=== PATIENT | female | born 1995 | race Caucasian/White ===

== ENCOUNTER 2017-01-17 21:52 | Emergency (ER) | payer BC, OTHER ==
[~2017-01-17] VITALS: Ht 165.1 cm; Wt 56.4 kg
[2017-01-17 21:54] VITALS: Ht 165.1 cm; Wt 56.4 kg
[2017-01-17] MEDS ORDERED: KETOROLAC TROMETHAMINE 30 MG/ML VIAL IV STA (22:04)
[2017-01-17] MEDS ORDERED: SODIUM CHLORIDE 0.9% 1000ML 500 ML IV STA (22:04)
[2017-01-17] MEDS ORDERED: BCPILLS PO (22:15)
[2017-01-17] MEDS ORDERED: MULT1TAB22 PO (22:15)
--- NOTE | 2017-01-17 22:16 | EMERGENCY ROOM VISIT NOTE ---
History Report prepared by Melquiades: Delbert Guido Under the Supervision of: Dr. Gerard Sanford M.D. First contact with patient: 21:59 Chief Complaint: FEVER Stated Complaint: FEVER, BLADDER INFECTION,BACK PAIN History of Present Illness The patient is a 21 year old female who presents to the Emergency Room with complaints of a constant fever beginning a couple days ago. The patient states that she went to [facility] last night and was told she had an untreated UTI that lead to a bladder infection. She reports that she was given an antibiotic, and she started it last evening. The patient notes that she has taken three doses of Cipro so far. She states that she is taking Q-pap to help with her fever. The patient reports that she was told to go to the ED if her fever broke 101 degrees or could not be controlled by medication. She notes that she took Q- pap this morning, and it controlled the fever. The patient states that she took it again, and the fever reached 100.9 degrees. She reports that she is no longer experiencing dysuria because of the Cipro. The patient notes that she is also having lower back discomfort. She states that she has a history of UTIs, but she has never been on Cipro before. The patient reports that she thought she had a yeast infection, so she took Monistat for a week. She denies vaginal discharge, chance of being , vomiting, sorethroat, cough, trouble eating, and congestion. The patient also denies a history of . Source of History: patient Onset: couple days ago Position: head Quality: other (fever) Timing: constant Associated Symptoms: + back pain, No sorethroat, No cough, No vomiting Note: Associated symptoms: pain-less fluid behind her ear drum Denies: vaginal discharge, chance of being , trouble eating, and congestion. Review of Systems See HPI for pertinent positives & negatives. A total of 10 systems reviewed and were otherwise negative. Past Medical & Surgical Medical Problems: (1) UTI (urinary tract infection) Family History Patient reports no known family medical history. Social History Smoking Status: Never Smoker Housing Status: lives with roommate Occupation Status: [employer] student Current/Historical Medications Scheduled Control Pills ( Control Pills), 1 TAB PO DAILY Multiple Vitamins W/ Minerals (One Daily For Women), 1 TAB PO DAILY Allergies Coded Allergies: No Known Allergies (Unverified , 01/17/17) Physical Exam Vital Signs Date Time Temp Pulse Resp B/P (MAP) Pulse Ox O2 Delivery O2 Flow Rate FiO2 01/17/17 23:33 36.9 01/17/17 22:44 78 20 99/60 98 Room Air 01/17/17 21:54 37.7 93 16 107/57 97 Room Air Physical Exam GENERAL: Patient is in no acute distress. HEENT: No acute trauma, normocephalic atraumatic, mucous membranes moist, no nasal congestion, no scleral icterus. NECK: No stridor, no adenopathy, no meningismus, trachea is midline. LUNGS: Clear to auscultation bilaterally, no wheeze, no rhonchi, breath sounds equal. HEART: Without murmurs gallops or rubs, regular rate and rhythm. ABDOMEN: Soft, bowel sounds positive, no hernias, no peritonitis. Mildly tender over the bladder and epigastrium. BACK: No flank discomfort with percussions. EXTREMITIES: No cyanosis or edema, full range of motion of all the joints without pain or difficulty, no signs for acute trauma. NEUROLOGIC: Oriented x 3, no acute motor or sensory deficits, no focal weakness. SKIN: No rash, no jaundice, no diaphoresis. Medical Decision & Procedures Laboratory Results 01/17/17 22:30 01/17/17 22:30 Test 01/17/17 22:30 Red Blood Count 3.63 M/uL (4.2-5.4) Mean Corpuscular Volume 92.0 fL (80-100) Mean Corpuscular Hemoglobin 32.5 pg (25-34) Mean Corpuscular Hemoglobin Concent 35.3 g/dl (32-36) RDW Standard Deviation 44.5 fL (36.4-46.3) RDW Coefficient of Variation 13.1 % (11.5-14.5) Mean Platelet Volume 10.2 fL (7.4-10.4) Urine Color YELLOW Urine Appearance CLEAR (CLEAR) Urine pH 7.0 (4.5-7.5) Urine Specific [place] 1.005 (1.000-1.030) Urine Protein NEG (NEG) Urine Glucose (UA) NEG (NEG) Urine Ketones NEG (NEG) Urine Occult Blood NEG (NEG) Urine Nitrite NEG (NEG) Urine Bilirubin NEG (NEG) Urine Urobilinogen NEG (NEG) Urine Leukocyte Esterase TRACE (NEG) Urine WBC (Auto) /hpf (0-5) Urine RBC (Auto) /hpf (0-4) Urine Hyaline Casts (Auto) /lpf (0-5) Urine Epithelial Cells (Auto) /lpf (0-5) Urine Bacteria (Auto) (NEG) Urine RBC 0-4 /hpf (0-4) Urine WBC 1-5 /hpf (0-5) Urine Epithelial Cells >30 /lpf (0-5) Urine Bacteria 1+ (NEG) Anion Gap 9.0 mmol/L (3-11) Est Creatinine Clear Calc Drug Dose 87.6 ml/min Estimated GFR () 104.6 Estimated GFR (Non- 90.3 BUN/Creatinine Ratio 9.0 (10-20) Calcium Level 9.0 mg/dl (8.5-10.1) Human Chorionic Gonadotropin, Qual NEG (NEG) Laboratory results reviewed by me. Medications Administered Medications (Trade) Dose Ordered Sig/Nazanin Route Start Time Stop Time Status Last Admin Dose Admin Sodium Chloride 500 ml @ 999 mls/hr Q31M STAT IV 01/17/17 22:04 01/17/17 22:34 DC 01/17/17 22:33 999 MLS/HR Ketorolac Tromethamine (Toradol Inj) 30 mg NOW STAT IV 01/17/17 22:04 01/17/17 22:06 DC 01/17/17 22:33 30 MG Ceftriaxone Sodium (Rocephin Inj) 1 gm NOW STAT IV 01/17/17 23:09 01/17/17 23:11 DC 01/17/17 23:41 1 GM ED Course 2158: The patient was evaluated in room B10. A complete history and physical exam was performed. 2203: Ordered Toradol Inj 30mg IV, Sodium Chloride 500 ml @ 999 mls/hr IV 2308: Ordered Rocephin Inj 1gm IV 2333: Reevaluated the patient. Her fever has returned to baseline. Discussed results and discharge instructions: she verbalized understanding and agreement. The patient is ready for discharge. Medical Decision The patient is a 21 year old female who presents to the ED with complaints of a fever. Differential diagnoses considered include partially treated UTI, PID, pneumonia, viral illness, appendicitis, pyelonephritis.. The patient presents to the emergency room with a fever. She has had 3 doses of Cipro for a urinary infection. She states that she has some mild low back pain, no flank pain. There's been no vomiting. She did have urinary burning and frequency, she states though this has resolved since starting the Cipro. She is here tonight because she had a temperature elevation and her urgent care paperwork said that she should come to the emergency room for persistent fever. There is a mild leukocytosis which would be consistent with infection, no anemia. No significant electrolyte abnormality or kidney failure. testing is negative. Urinalysis shows possible partially treated infection versus contamination. Urine culture is pending. On exam, the patient was not febrile or toxic. There was no peritonitis. Her lungs were clear. She's not had cough or sore throat or nasal congestion. The patient was given IV Toradol, she received IV saline. She was given IV ceftriaxone. I suspect the patient does have a UTI as the cause for her fever. She may even have an early pyelonephritis. She looks well and can be discharged to continue the Cipro. She has a 10 day course prescribed. She can use Tylenol and/or Motrin for fever and pain. If she's not improving, she should return for reassessment. Impression Primary Impression: UTI (urinary tract infection) Additional Impression: Fever Scribe Attestation The scribe's documentation has been prepared under my direction and personally reviewed by me in its entirety. I confirm that the note above accurately reflects all work, treatment, procedures, and medical decision making performed by me. Departure Information Dispostion Home / Self-Care Referrals No Doctor, Assigned (PCP) Forms HOME CARE DOCUMENTATION FORM, IMPORTANT VISIT INFORMATION Patient Instructions My [facility] [address] Additional Instructions continue the cipro 2x per day for 10 full days motrin or tylenol for pain and fever lots of fluids for hydration rest return for worsening symptoms, vomiting or if not continuing to improve Problem Qualifiers
[2017-01-17 22:58] LABS: URINE APPEARANCE CLEAR (CLEAR); URINE BILIRUBIN NEG (NEG); URINE COLOR YELLOW; URINE NITRITE NEG (NEG); URINE SPECIFIC GRAVITY 1.005 (1.000-1.030); UROBILINOGEN NEG (NEG)
[2017-01-17 22:59] LABS: HEMATOCRIT 33.4 % (37-47); MEAN CORPUSCULAR HEMOGLOBIN 32.5 pg (25-34); MEAN CORPUSCULAR HGB CONC 35.3 g/dl (32-36); MEAN PLATELET VOLUME 10.2 fL (7.4-10.4); PLATELET COUNT 255 K/uL (130-400); RED BLOOD COUNT 3.63 M/uL (4.2-5.4); WHITE BLOOD COUNT 13.84 K/uL (4.8-10.8)
[2017-01-17] MEDS ORDERED: CEFTRIAXONE SOD INJ 1 GM ADDVIAL IV STA (23:09)
[2017-01-17 23:19] LABS: MANUAL MICROSCOPIC REQUIRED? YES; REVIEW REQ? NO
[2017-01-17 23:22] LABS: CREATININE 0.92 mg/dl (0.60-1.20); POTASSIUM 3.3 mmol/L (3.5-5.1)
[2017-01-17 23:29] LABS: URINE BACTERIA 1+ (NEG); URINE RBC 0-4 /hpf (0-4)
[2017-01-17 23:30] LABS: ZZUR CULT IF INDIC CLEAN CATCH YES
[2017-01-17 23:37] LABS: PREG INTERNAL NEGATIVE QC NEG CLEAR BACKGROUND; PREG INTERNAL POSITIVE QC POS CONTROL LINE
[2017-01-18 00:17] VITALS: BP 97/56; PULSE 66; TEMP 37.3; O2SAT 100
== END 2017-01-18 00:17 | disposition home or self-care (01) ==
LOC: C.EDB 21:56
DX: N39.0 Urinary tract infection, site not specified (principal); Z79.3 Long term (current) use of hormonal contraceptives